=== PATIENT | female | born 1955 | race American Indian/Alaskan Native ===

== ENCOUNTER 2018-02-13 10:21 | Outpatient (CLI) | payer BC ==
--- NOTE | 2018-02-13 11:59 | Cat Scan Report ---
CT abdomen and pelvis without contrast: Abdominal pain. Transverse images are obtained from lower chest to the ischium with coronal and sagittal 2-D reformatted images. The visualized lung bases are clear with no nodules. The gallbladder has been removed. The abdominal organs are not otherwise remarkable. There is a well-defined exophytic 8.7 mm left renal mass with low-attenuation consistent with cyst. The retroperitoneal organs are not otherwise remarkable. The abdominal aorta is normal in size and contour. There are scattered diverticula along the descending colon but no inflammatory changes noted. The unopacified bowel and mesentery is otherwise remarkable. The appendix is questionably identified with no evidence of inflammation. Scattered phleboliths are seen in the pelvis some of which appear adjacent but not within the urinary tract. Unremarkable reproductive organs for age. Degenerative lower lumbar apophyseal joint changes. Impression: Descending colonic diverticulosis.
== END 2018-02-13 10:22 | disposition home or self-care (01) ==
LOC: SPVIMAG 10:21
PROVIDERS: ATTEND Internal Medicine Gastroenterology
DX: K57.30 Diverticulosis of large intestine without perforation or abscess without bleeding (principal); I87.8 Other specified disorders of veins; M47.896 Other spondylosis, lumbar region; Z90.49 Acquired absence of other specified parts of digestive tract
CPT/HCPCS: 74176